=== PATIENT | female | born 1955 | race Caucasian/White ===

== ENCOUNTER → 2016-04-24 | Outpatient (CLI) | payer BC | LOC: FIMAGING 10:46 | DX: Z12.31 Encounter for screening mammogram for malignant neoplasm of breast (principal) | CPT/HCPCS: G0202 ==

== ENCOUNTER → 2017-04-12 | Outpatient (CLI) | payer BC | LOC: BMCIMAGING 14:29 | PROVIDERS: ATTEND Internal Medicine | DX: R00.1 Bradycardia, unspecified (principal); R42 Dizziness and giddiness; E04.2 Nontoxic multinodular goiter ==

== ENCOUNTER 2017-05-19 16:29 | Emergency (ER) | payer BC ==
--- NOTE | 2017-05-19 16:42 | EDPHY ---
H & P Time Seen by Provider: 05/19/17 16:38 HPI/ROS: Chief complaint. Chest pain HPI. 61-year-old female presents with anterior chest discomfort that she describes as pressure that began about 12:30 p.m. Today. Still present but better. No radiation. Feels she feels it is hard to take a full deep breath. Dizzy and somewhat feeling like she could pass out. No fever. Her symptoms are better with walking but worse when she is out in the cold and sitting down. She has had recent cardiac workup as with essentially normal echo, Holter monitor, EKG. She has not had a stress test yesterday. She had a heart scan 3 years ago which showed calcium score of 0. She is also undergoing both cardiac workup as well as sleep apnea workup. Her symptoms are not worse with exertion as noted. No unusual leg pain or swelling. Again no fever and cough. ROS Constitutional. no fever/chills, no weakness Eyes. no problems with vision ENT. no sore throat, no nasal drainage Cardiovascular. Chest pressure Respiratory. Feels that can't take full breath Abdominal. no abdominal pain, no nausea/vomiting, no diarrhea . no problems urinating MS. no calf pain/swelling, no neck/back pain, no joint pain Skin. no rash Lymph. no swollen glands Neuro. no headache, no dizziness, no difficulty walking or with speech Past Medical/Surgical History: Past medical history seen for goiter with thyroidectomy, vertigo, dyslipidemia Family history parents of cancer. Siblings do not have heart disease. There was heart disease in grandparents Social History: , nonsmoker, no alcohol Smoking Status: Former smoker Physical Exam: General Appearance: Alert well-developed female mild distress vital signs are stable Eyes: Pupils equal and round no pallor or injection. ENT, Mouth: Mucous membranes are moist. Respiratory: There are no retractions, lungs are clear to auscultation. Cardiovascular: Regular rate and rhythm. Gastrointestinal: Abdomen is soft and nontender, no masses, bowel sounds normal. Neurological: Awake and alert, sensory and motor exams grossly normal. Skin: Warm and dry, no rashes. Musculoskeletal: Neck is supple nontender. Extremities symmetrical, full range of motion. Psychiatric: Patient is oriented X 3, there is no agitation. Constitutional: Initial Vital Signs Temperature (C) 37 C 05/19/17 16:31 Heart Rate 88 05/19/17 16:31 Respiratory Rate 20 05/19/17 16:31 Blood Pressure 161/98 H 05/19/17 16:31 O2 Sat (%) 93 05/19/17 16:31 O2 Delivery Mode Room Air Allergies/Adverse Reactions: codeine Allergy (Mild, Verified 05/19/17 16:30) GI Home Medications: Medication Instructions Recorded Levothyroxine [Synthroid 100 mcg 100 mcg PO DAILY06 04/19/14 (RX)] Estrogens, Conjugated 05/19/17 Progesterone 05/19/17 Medical Decision Making - Diagnostics EKG Interpretation: EKG interpreted by me shows normal sinus rhythm with normal interval and axis. QRS is normal there is no significant ST elevation or depression. There is no arrhythmia. The rate is 74 Imaging Results: Imaging Impressions Chest X-Ray 05/19/17 16:47 Impression: Normal. Chest/Thorax CTA 05/19/17 17:37 Impression: 1. No evidence of pulmonary embolic disease. 2. See above report for additional findings. Results called and discussed with Gilmer Rueda M.D. on 05/19/2017 at 18:18. Chest x-ray reviewed by me is interpreted as normal CT chest reviewed by me and discussed with Dr. Awad shows no evidence for PE Procedures: IV normal saline, monitor ED Course/Re-evaluation: Repeat troponin is also normal Re-evaluation 6:35 p.m.. The patient and I discussed laboratory and imaging study results. We discussed treatment plan including criteria for return importance of follow-up and further evaluation. She expresses understanding and agreement. We discussed admission no patient is comfortable being treated and followed up as an outpatient Differential Diagnosis: I considered acute coronary syndrome, pulmonary embolus, pneumothorax, pneumonia. Patient has had recent normal cardiac workup and within about 3 years a heart scan that showed calcium score of 0. I do not think this is likely to be acute coronary syndrome. We ruled out pulmonary embolus and pneumonia by CT scan and chest x-ray. This may be anxiety - Data Points Laboratory Results: Laboratory Results 05/19/17 16:48 05/19/17 16:48 05/19/17 05/19/17 05/19/17 17:47 16:48 16:48 WBC 5.63 10^3/uL 10^3/uL (3.80-9.50) RBC 4.59 10^6/uL 10^6/uL (4.18-5.33) Hgb 14.6 g/dL g/dL (12.6-16.3) Hct 42.6 % % (38.0-47.0) MCV 92.8 fL fL (81.5-99.8) MCH 31.8 pg pg (27.9-34.1) MCHC 34.3 g/dL g/dL (32.4-36.7) RDW 13.2 % % (11.5-15.2) Plt Count 233 10^3/uL 10^3/uL (150-400) MPV 9.4 fL fL (8.7-11.7) Neut % (Auto) 73.4 % % (39.3-74.2) Lymph % (Auto) 18.8 % % (15.0-45.0) [place] % (Auto) 6.0 % % (4.5-13.0) Eos % (Auto) 0.9 % % (0.6-7.6) Baso % (Auto) 0.7 % % (0.3-1.7) Nucleat RBC Rel Count 0.0 % % (0.0-0.2) Absolute Neuts (auto) 4.13 10^3/uL 10^3/uL (1.70-6.50) Absolute Lymphs (auto) 1.06 10^3/uL 10^3/uL (1.00-3.00) Absolute Monos (auto) 0.34 10^3/uL 10^3/uL (0.30-0.80) Absolute Eos (auto) 0.05 10^3/uL 10^3/uL (0.03-0.40) Absolute Basos (auto) 0.04 10^3/uL 10^3/uL (0.02-0.10) Absolute Nucleated RBC 0.00 10^3/uL 10^3/uL (0-0.01) Immature Gran % 0.2 % % (0.0-1.1) Immature Gran # 0.01 10^3/uL 10^3/uL (0.00-0.10) D-Dimer Sodium 144 mEq/L mEq/L (135-145) Potassium 3.8 mEq/L mEq/L (3.5-5.2) Chloride 108 mEq/L mEq/L (97-110) Carbon Dioxide 23 mEq/l mEq/l (22-31) Anion Gap 13 mEq/L mEq/L (8-16) BUN 17 mg/dL mg/dL (7-23) Creatinine 0.8 mg/dL mg/dL (0.6-1.0) Estimated GFR > 60 Glucose 114 mg/dL H mg/dL (70-100) Calcium 9.5 mg/dL mg/dL (8.5-10.4) Troponin I < 0.012 ng/mL ng/mL < 0.012 ng/mL ng/mL (0.000-0.034) (0.000-0.034) 05/19/17 16:43 WBC RBC Hgb Hct MCV MCH MCHC RDW Plt Count MPV Neut % (Auto) Lymph % (Auto) [place] % (Auto) Eos % (Auto) Baso % (Auto) Nucleat RBC Rel Count Absolute Neuts (auto) Absolute Lymphs (auto) Absolute Monos (auto) Absolute Eos (auto) Absolute Basos (auto) Absolute Nucleated RBC Immature Gran % Immature Gran # D-Dimer 0.58 ug/mLFEU H ug/mLFEU (0.00-0.50) Sodium Potassium Chloride Carbon Dioxide Anion Gap BUN Creatinine Estimated GFR Glucose Calcium Troponin I Medications Given: Discontinued Medications Aspirin (Aspirin) 325 mg PO EDNOW ONE Stop: 05/19/17 16:47 Last Admin: 05/19/17 16:48 Dose: 325 mg Sodium Chloride (Ns) 1,000 mls @ 0 mls/hr IV EDNOW ONE; Wide Open PRN Reason: Protocol Stop: 05/19/17 17:38 Last Admin: 05/19/17 17:41 Dose: 1,000 mls Departure - Departure Disposition: Home, Routine, Self-Care Clinical Impression: Chest pain Qualifiers: Chest pain type: unspecified Qualified Code(s): R07.9 - Chest pain, unspecified Condition: Good Instructions: Chest Pain (ED) Additional Instructions: Normal activity. Continue regular medications. Return for worsening chest discomfort or trouble breathing. Follow up with Dr. Knight upon return from [place]. Referrals: NONE *PRIMARY CARE P,. [Primary Care Provider] - As per Instructions Barb Knight MD [[facility] Primary Care Provider] - As per Instructions
[2017-05-19] MEDS ORDERED: ASPIRIN 325 MG TAB PO ONE (16:46)
[2017-05-19] MEDS ORDERED: ASPIRIN 325 MG TAB ONE (16:47)
--- NOTE | 2017-05-19 16:47 | CPEKG ---
Heart Rate: 74 RR Interval: 811 P-R Interval: 148 QRSD Interval: 90 QT Interval: 400 QTC Interval: 444 P Lebo: 48 QRS Lebo: -4 T Wave Lebo: 35 EKG Severity - NORMAL ECG - EKG Impression: SINUS RHYTHM Electronically Signed By: Gilmer Rueda 19-May-2017 18:52:40
[2017-05-19 16:54] LABS: PLATELET COUNT 233 10^3/uL (150-400)
[2017-05-19] MEDS ORDERED: NS 1,000 ML IV ONE (17:37)
[2017-05-19] MEDS ORDERED: IOPAMIDOL (ISOVUE 370) 100 ML BTL IV ONE (17:45)
[2017-05-19 18:49] VITALS: BP 130/92
== END 2017-05-19 18:50 | disposition home or self-care (01) ==
DX: R07.9 Chest pain, unspecified (principal); E86.9 Volume depletion, unspecified; Z87.891 Personal history of nicotine dependence
CPT/HCPCS: Q9967

== ENCOUNTER → 2017-06-07 | Outpatient (CLI) | payer BC | LOC: FIMAGING 14:04 | PROVIDERS: ATTEND Naturopath | DX: Z12.31 Encounter for screening mammogram for malignant neoplasm of breast (principal); Z13.820 Encounter for screening for osteoporosis; E03.9 Hypothyroidism, unspecified; Z78.0 Asymptomatic menopausal state; Z79.890 Hormone replacement therapy ==

== ENCOUNTER → 2018-06-08 | Outpatient (CLI) | payer BC | LOC: FIMAGING 08:39 | PROVIDERS: ATTEND Naturopath | DX: Z12.31 Encounter for screening mammogram for malignant neoplasm of breast (principal) ==